=== PATIENT | female | born 1965 | race Caucasian/White ===

== ENCOUNTER 2016-07-07 10:20 | Emergency (ER) | payer OTHER ==
[~2016-07-07 10:20] MED LIST: ALBUTEROL17 GM INH; ALPRAZOLAM PO; ANTIVERT PO; BACLOFEN10 MG PO; BENZONATATE PO; CIPRO PO; DEPAKOTE ER PO; DEPAKOTE PO; DEXTROMETHORPHAN PO; FLAGYL PO; FLEXERIL10 M1 PO; HYDROCODON-ACE1 EAC7 PO; HYDROCODONE-APA1 T58 PO; IBUPROFEN PO; IBUPROFEN800 MG PO; LEVAQUIN PO; LEVAQUIN750 MG PO; LOMOTIL TABLET1 TAB PO; LORTAB 5/500 TA1 TA1 PO; LORTAB 7.5-5001 TAB PO; MACROBID100 MG PO; NORCO1 TAB 10/3; NORFLEX100 M1; PANTOPRAZOLE SO40 MG PO; PHENERGAN PO; PHENERGAN25 M1 PO; PHENERGAN25 MG PO; PREDNISONE; PREDNISONE PO; PROMETHAZINE PO; PYRIDIUM PO; ROBITUSSIN; SKELAXIN PO; SUBOXONE 8 MG-1 EAC1 SL; TOPAMAX PO; TOPAMAX25 MG PO; ULTRAM PO; VOLTAREN50 MG PO; VOLTAREN75 MG PO; XANAX0.5 M1 PO; ZITHROMAX PO; ZITHROMAX1 G/PKT PO; ZOFRAN ODT4 MG PO
[2016-07-07 11:28] LABS: URINE SOURCE CLEAN CATCH
[2016-07-07 11:31] LABS: URINE APPEARANCE SL CLOUDY; URINE BILIRUBIN NEG (NEG); URINE BLOOD 2+ (NEG); URINE COLOR YELLOW; URINE GLUCOSE NEG (NORM); URINE KETONE NEG (NEG); URINE LEUKOCYTE ESTERASE TRACE (NEG); URINE NITRATE POS (NEG); URINE PH 5.5 (5-8); URINE PROTEIN 2+ (NEG); URINE SPECIFIC GRAVITY >=1.030 (1.003-1.035); URINE UROBILINOGEN 0.2 MG/DL (NORM)
[2016-07-07 11:36] LABS: MICRO INDICATED? YES
[2016-07-07 11:38] LABS: CULTURE INDICATED? YES; URINE BACTERIA 1+ (NEG); URINE SQUAMOUS EPITHELIAL CELL FEW /[HPF]; URINE WBC 50-100 /[HPF] (0-5)
== END 2016-07-07 12:36 | disposition home or self-care (01) ==
LOC: SED 10:20
PROVIDERS: Emergency Medicine
DX: N10 Acute pyelonephritis (principal); F41.9 Anxiety disorder, unspecified; F32.9 Major depressive disorder, single episode, unspecified
CPT/HCPCS: 81003; 84703; 87086; 87088; 87186; 96372; 99284; J0696